=== PATIENT | male | born 1985 | race African-American/Black ===

== ENCOUNTER 2016-07-07 20:04 | Emergency (ER) | payer SELFPAY ==
[~2016-07-07] VITALS: Ht 180.3 cm; Wt 85.0 kg
[2016-07-07] MEDS ORDERED: KETOROLAC TROMETHAMINE 60 MG/2 ML VIAL IM ONE (22:00)
[2016-07-07] MEDS ORDERED: METHOCARBAMOL 500 MG TABLET PO ONE (22:00)
[2016-07-07 22:44] VITALS: BP 136/77
== END 2016-07-07 22:58 | disposition home or self-care (01) ==
LOC: EMS 20:05
DX: S40.011A Contusion of right shoulder, initial encounter (principal); S70.01XA Contusion of right hip, initial encounter; S39.012A Strain of muscle, fascia and tendon of lower back, initial encounter; R03.0 Elevated blood-pressure reading, without diagnosis of hypertension
CPT/HCPCS: 96372; 99283; J1885